=== PATIENT | male | born 1985 | race Caucasian/White ===

== ENCOUNTER 2020-05-15 12:51 | Emergency (ER) | payer SELFPAY ==
[2020-05-15 13:24] VITALS: BP 139/96; PULSE 67; RESP 16; TEMP 37.2; O2SAT 98; BMI 28.1
--- NOTE | 2020-05-15 13:42 | ED.DENTAL ---
HPI - Dental/Oral General Chief complaint: Dental/Oral Stated complaint: abscess Time Seen by Provider: 05/15/20 13:42 History of Present Illness HPI Narrative: Patient complains of left lower dental pain associated with facial swelling that has been going on for 4 days and were swelling and worse pain, there is no trouble breathing or swallowing no fever no chills Related Data Previous Rx's Medication Instructions Recorded amoxicillin-pot clavulanate 1 tab PO BID 7 Days #14 tab 05/15/20 [Augmentin] ibuprofen 600 mg PO Q6H PRN #30 tab 05/15/20 Allergies Allergy/AdvReac Type Severity Reaction Status Date / Time peanut Allergy Unknown SWELLING Unverified 03/16/20 15:39 Review of Systems Review of Systems: There is no fever no chills no weakness no dizziness, no problem breathing or swallowing no rash no shortness of breath PMFSH Past Medical History Source: nursing notes reviewed Medical History (Updated 05/16/20 @ 00:00 by Jairo Bernal) Fracture, jaw Fx angle of jaw-closed Social History Social History Advance Directives: No Advance Directives Information Provided: No Physical Exam Vital Signs: Vital Signs: Last Vital Signs Temp 99.0 F 05/15/20 13:24 Pulse 67 05/15/20 13:24 Resp 16 05/15/20 13:24 BP 139/96 H 05/15/20 13:24 Pulse Ox 98 05/15/20 13:24 Body Mass Index 28.1 General appearance a and O x3 no distress The facial exam has left sided low mandible swelling, dental exam there is tenderness to the left lower premolar with a large fluctuant area of gum swelling B side the tooth, there is no swelling under the tongue there is no impairment of breathing or swallowing, there is no trismus The neck is supple The pharynx is clear The patient has no respiratory distress Skin no rashes Neuro no focal deficits Course Course Course Narrative: I aspirated the fluctuant area beside the left lower premolar with a very quick return of a large amount of pus Patient felt some relief of pain and he was started on antibiotic and discharge Discharge Plan Discharge Clinical Impression: Dental abscess Patient Disposition: Home, Self-Care Additional Instructions: Follow with dentist as soon as you can Return to ER any time for worse swelling, swelling under the tongue, spreading redness in the area of infection, any difficulty breathing any fever or chills any worse condition or concerns Prescriptions: New amoxicillin-pot clavulanate [Augmentin] 875-125 mg tablet 1 tab PO BID 7 Days Qty: 14 RF: 0 ibuprofen 600 mg tablet 600 mg PO Q6H PRN (Reason: pain) Qty: 30 RF: 0 Interventions: ED Discharge Assessment Last Done: 05/15/20 14:06 Discharge Date/Time: 05/15/20 14:08
[2020-05-15] MEDS: Amoxicillin/Potassium Clav 875 MG TABLET PO (14:03)
[2020-05-15] MEDS: Ibuprofen 600 MG TABLET PO (14:03)
== END 2020-05-15 14:08 | disposition home or self-care (01) ==
PROVIDERS: Emergency Provider Emergency Medicine
DX: K04.7 Periapical abscess without sinus (principal)
CPT/HCPCS: 99283

== ENCOUNTER 2022-03-15 10:38 | Outpatient (REF) | payer SELFPAY ==
[2022-03-15 11:37] LABS: COVID-19 Test Negative (Negative)
== END 2022-03-15 10:39 | disposition home or self-care (01) ==
LOC: HO.LAB 10:38
PROVIDERS: Visit Provider Internal Medicine
DX: Z20.822 Contact with and (suspected) exposure to COVID-19 (principal)
CPT/HCPCS: 87635; C9803

== ENCOUNTER 2022-06-11 10:17 | Emergency (ER) | payer OTHER, SELFPAY ==
[2022-06-11 10:24] VITALS: BP 122/82; PULSE 85; RESP 14; TEMP 36.6; O2SAT 98; BMI 26.3
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
== END 2022-06-11 11:18 | disposition home or self-care (01) ==
PROVIDERS: Emergency Provider Emergency Medicine
DX: M54.2 Cervicalgia (principal); M54.50 Low back pain, unspecified; Z79.899 Other long term (current) drug therapy
CPT/HCPCS: 99282; 99283